=== PATIENT | male | born 1945 ===

== ENCOUNTER 2018-02-18 06:31 | Day surgery (SDC) | payer MEDICARE ==
[2017-05-12 09:26] VITALS: BMI 25.8
[2018-02-18] MEDS ORDERED: Lidocaine 2% Inj (20ml) ONE (06:59)
[2018-02-18] MEDS ORDERED: Iodixanol 320 MG/ML 100 ML BOTTLE IV ONE ×2 (07:00→08:37)
[2018-02-18] MEDS ORDERED: Nitroglycerin 50mg in D5W 50 MG/250 ML BOTTLE IV ONE (07:00)
[2018-02-18] MEDS ORDERED: Iohexol 350mgl/ml 50 ML ONE (07:00)
[2018-02-18] MEDS ORDERED: Iodixanol 320 MG/ML 200 ML BOTTLE IV ONE (07:00)
[2018-02-18] MEDS ORDERED: Phenylephrine 10 mg/ml Inj ONE (07:00)
[2018-02-18 07:19] LABS: BASO # 0.02 K/mm3 (0.0-2.0); BASO % 0.4 % (0.0-3.0); EOS # 0.2 (0.0-0.7); EOS % 3.2 % (1.5-5.0); GRAN # 1.94 (1.4-6.5); LYMPH # 2.3 (1.2-3.4); LYMPH % 45.2 % (22.0-35.0); MEAN CELL VOLUME 89.7 fl (80.0-105.0); MEAN CORPUSCULAR HEMOGLOBIN 30.6 pg (25.0-35.0); MEAN CORPUSCULAR HGB CONC 34.1 g/dl (31.0-37.0); MEAN PLATELET VOLUME 9.1 fl (7.0-11.0); MONO # 0.6 (0.1-0.6); MONO % 12.2 % (1.0-6.0); RBC 4.57 10^6/uL (3.5-6.1)
[2018-02-18 07:28] LABS: GFR AFRICAN-AMERICAN > 60; GFR NON-AFRICAN AMERICAN > 60
[2018-02-18 07:30] LABS: BLOOD UREA NITROGEN 31 mg/dL (7-21)
[2018-02-18] MEDS ORDERED: Midazolam 2 MG/2 ML VIAL ONE ×2 (07:35→07:59)
[2018-02-18 07:40] LABS: INR 1.05 (0.93-1.08); PARTIAL THROMBOPLASTIN TIME 28.4 Seconds (25.1-36.5); PROTHROMBIN TIME 12.1 SECONDS (9.4-12.5)
[2018-02-18] MEDS ORDERED: Sodium Chloride 0.9% 1,000 ML IV SCH (09:15)
--- NOTE | 2018-02-18 11:38 | CARDCATH ---
PROCEDURE DATE: 02/18/2018 HISTORY The patient is a 72-year-old male who presents with recurrent exertional burning in his chest which is consistent after walking 2 blocks. On EKG, he was noted to have frequent PVCs. The patient suffers from diabetes mellitus, hypertension and hypercholesterolemia. Because of this, cardiac catheterization was recommended. PROCEDURE: Left heart catheterization with coronary arteriography, left ventriculogram, supra-aortic valvular injection as well as PTCA and stent of an RCA. The right femoral artery was cannulated with a 6-Swedish sheath. There were no complications. I performed moderate sedation which included the presence of an independent-trained observer that assisted in monitoring the patient's level of consciousness and physiologic status. After administration of fentanyl and Versed, my intra-service time was 45 minutes. The findings on catheterization revealed subtotally occluded RCA with 99% stenosis at its ostium. The left main artery was heavily calcified with 40% stenoses in the mid to distal left main artery as well as a 30-40% ostial left main stenoses. The LAD and diagonal vessels revealed diffuse atherosclerosis without critical lesions. Diagonal vessel revealed diffuse atherosclerosis without critical lesions. The patient had a right dominant circulation. LV function is normal with an EF of 55%. The patient was started on intravenous Angiomax on the fluoroscopic guide, no-torque RCA guiding catheter was placed in the ostium of the RCA. Using a guide liner for better support, an ATW wire was used to cross the RCA lesion. A 2.0 followed by 2.5 balloon was utilized to predilate the ostium of the RCA. A 2.5 x 12 mm drug-eluting stent was placed and deployed at 14 atmospheres of pressure. This was post-dilated with a 3.0 balloon. The vessel that initially was small became a 3.0 vessel and was a large vessel that supplied the inferior wall of the left ventricle. Repeat coronary arteriography after placing the 2.5 and post dilatation with 3.0 balloon and a drug-eluting stent revealed an excellent result with no residual stenosis and DB III flow. Angio-Seal was used to close the femoral artery site. The patient tolerated the procedure well. In summary, the procedure was successful for PTCA and stent of 99% stenoses of the ostial RCA vessel. Cardiac catheterization reveals the lesion in the RCA as well as heavy calcification and 40% stenosis of the left main artery with diffuse atherosclerosis in his coronary tree. LV function is normal. Given these findings, the treatment will be continued, aspirin with Plavix for at least a year and undergo a strict cardiac risk reduction program. Donnie Cunningham MD
[2018-02-18] MEDS: Insulin Reg-MEDIUM-Coverage SC SCH ×3 (11:58→22:11)
--- NOTE | 2018-02-18 13:14 | CARD ---
APPROVED REPORT EKG Measurement Heart [id number] <Conclusion> Sinus rhythm with 2 premature supraventricular complexes and borderline 1st degree AVB
[2018-02-19] MEDS ORDERED: Pantoprazole 40 mg EC Tab PO STA (04:02)
[2018-02-19] MEDS ORDERED: Pantoprazole 40 mg EC Tab PO SCH (06:00)
[2018-02-19 06:35] LABS: BASO # 0.01 K/mm3 (0.0-2.0); BASO % 0.2 % (0.0-3.0); EOS # 0.1 (0.0-0.7); EOS % 1.3 % (1.5-5.0); GRAN # 4.16 (1.4-6.5); GRAN % 70.1 % (50.0-68.0); LYMPH # 1.2 (1.2-3.4); LYMPH % 20.5 % (22.0-35.0); MEAN CORPUSCULAR HEMOGLOBIN 30.2 pg (25.0-35.0); MEAN CORPUSCULAR HGB CONC 33.6 g/dl (31.0-37.0); MEAN PLATELET VOLUME 9.2 fl (7.0-11.0); MONO # 0.5 (0.1-0.6); MONO % 7.9 % (1.0-6.0); RBC 4.3 10^6/uL (3.5-6.1); RED CELL DISTRIBUTION WIDTH 13.9 % (11.5-14.5); WHITE BLOOD COUNT 5.9 10^3/ul (4.5-11.0)
[2018-02-19 06:46] VITALS: O2SAT 99
[2018-02-19 07:00] LABS: ALB/GLOB RATIO 1.2 (1.1-1.8); ALBUMIN 3.7 g/dL (3.0-4.8); ALT/SGPT 35 U/L (7-56); AST/SGOT 22 U/L (17-59); BLOOD UREA NITROGEN 20 mg/dL (7-21); CALCIUM 9.5 mg/dL (8.4-10.5); GFR AFRICAN-AMERICAN > 60; GFR NON-AFRICAN AMERICAN > 60
--- NOTE | 2018-02-19 08:02 | HP ---
HISTORY OF PRESENT ILLNESS: I was called by Dr. Cunningham to see him. He just had a stent placement today and now he is resting comfortably in bed. He is a 72-year-old man who presents status post stent placement. He was feeling weak with heartburn and shortness of breath after walking a few blocks. He then went for cardiac cath and now he is resting comfortably in bed. He is alert and oriented x3. PAST MEDICAL HISTORY: Diabetes, high cholesterol, hypertension, and history of cancer. He has prostate cancer with seeds about 8 years ago. He had a left heart cath. He does have a history of falling. FAMILY HISTORY: There is also cancer in the family. Father had prostate cancer. SOCIAL HISTORY: He smoked about 15 years. He said he did not . No alcohol. No drugs. He wears glasses. REVIEW OF SYSTEMS: Shortness of breath if walking too far. HEENT: No acute vision. No acute hearing issues, but chronic stuff. No sore throat. There is some shortness of breath and chest pain, if he does too much. No palpitation, no cough. No abdominal pain, nausea, vomiting, constipation, or diarrhea. No swelling. Skin is intact as far as he knows . PHYSICAL EXAMINATION: VITAL SIGNS: Temperature 97.6, 72 pulse, 142/75 blood pressure, 20 respiratory rate, 98% O2 sat on room air. HEENT: Head is atraumatic, normocephalic. Extraocular muscles are intact. Throat is moist. NECK: Supple. HEART: Regular rate. LUNGS: Decreased breath sounds with poor inspiration. ABDOMEN: Soft, obese, and nontender. EXTREMITIES: No edema. SKIN: For I could tell, is intact. LYMPHATICS: Thyroid midline. No palpable appreciable lymphadenopathy. LABORATORY DATA: He has 143 sodium, potassium 4.3. BUN 31, creatinine 1. GFR is greater than 60. Sugar is 171. Calcium is 10. He has 1.05 INR. He has a white count of 5, hemoglobin 14, hematocrit 41, and platelets are 285. He is currently on Ecotrin, Lipitor, Plavix, and IV fluids. I am going to add insulin coverage for him because he is a diabetic. I am not going to give him the metformin at this time because of his 142/75 which is tolerable. He will lie flat until tomorrow and then will come in tomorrow. If he can do well, we will discharge him. History and physical who had CAD, cardiac cath with stent placement. Jamel Orozco DO MTD[facility]
[2018-02-19] MEDS: Insulin Reg-MEDIUM-Coverage SC SCH (08:21)
[2018-02-19 11:46] VITALS: BP 122/72; PULSE 70; RESP 21; TEMP 98.5
--- NOTE | 2018-02-19 12:19 | PN ---
DATE: 02/19/2018 CARDIOLOGY FOLLOWUP SUBJECTIVE: The patient is chest pain free. PHYSICAL EXAMINATION: VITAL SIGNS: Blood pressure is 142/90, the heart rates in the 70s. NECK: Negative JVD. LUNGS: Without rales. HEART: With S1, S2. EXTREMITIES: Without edema. Right groin site is stable. LABORATORY DATA: Glucose is 174. BUN and creatinine are unremarkable. Hemoglobin is 13. IMPRESSION: 1. Stable post percutaneous transluminal coronary angioplasty and stent of subtotally occluded right coronary artery with ostial and proximal right coronary artery. 2. Diabetes mellitus. 3. Coronary artery disease. 4. Hypercholesterolemia. PLAN: Given these findings, the patient's cardiac is stable post procedure. The patient can be discharged today. Followup and instructions have been given to the patient in detail. Donnie Cunningham MD
--- NOTE | 2018-02-19 13:51 | CARD ---
APPROVED REPORT EKG Measurement Heart [id number] 180P41 [id number] <Conclusion> Normal sinus rhythm Small q waves 3,F Normal ECG
--- NOTE | 2018-02-20 06:44 | DS ---
HISTORY OF PRESENT ILLNESS: He had a cardiac cath yesterday with Dr. Cunningham. He did well after the procedure, but this morning, he is having some chest pain. He is on omega-3, fish oil, vitamin D, Lipitor, Ecotrin, Plavix and Glucophage. PHYSICAL EXAMINATION: VITAL SIGNS: 98.3 temperature, 77 pulse, , 130/84 blood pressure, 19 respiratory rate, 99% O2 sat on room air. HEENT: Head is atraumatic, normocephalic. HEART: Regular rate. LUNGS: Decreased breath sounds, but clear. ABDOMEN: Soft, nontender. Positive bowel sounds. EXTREMITIES: No edema. LABORATORY DATA: He has 5.9 white count, 13 hemoglobin, 30.7 hematocrit with 250 platelets. 139 sodium, potassium 4.5, BUN 20, creatinine 0.9, GFR is greater than 60. Last blood sugar is 164. Calcium is 9.5, total bili is 1.3, AST is 22, ALT is 35, alk phos 67, total protein 6.7. ASSESSMENT AND PLAN: I will discuss with Dr. Cunningham this chest pain he had. He was given Protonix and Pepcid early this morning. He said it is helping a little bit that was just about 2 hours after we started the medication. We will see what Dr. Cunningham has to say and there is an EKG pending this morning. We will see what that looks like, but hopefully, he can be discharge status post coronary artery disease and stent placement. Jamel Orozco DO MTDD
== END 2018-02-19 13:55 | disposition home or self-care (01) ==
LOC: CATH 06:31 → 2RSO 09:21 → CATH 02-19 13:55
PROVIDERS: ATTEND Family Medicine
DX: I25.10 Atherosclerotic heart disease of native coronary artery without angina pectoris (principal); E11.9 Type 2 diabetes mellitus without complications; I10 Essential (primary) hypertension; E78.00 Pure hypercholesterolemia, unspecified; Z85.46 Personal history of malignant neoplasm of prostate; Z87.891 Personal history of nicotine dependence
CPT/HCPCS: 36415; 80048; 80053; 82948 ×2; 85025 ×2; 85027; 85610; 85730; 86850; 86900; 93005 ×2; 93458; 99152; 99153; C1725 ×2; C1760; C1769 ×2; C1874; C1887 ×3; C2629; C9600; J0583; J1644; J2250; J3010; J7030; J7040; Q9966; Q9967 ×2